=== PATIENT | male | born 1970 | race African-American/Black ===

== ENCOUNTER 2024-06-16 12:21 | Emergency (ER) | payer MEDICARE, MEDICAID ==
[2024-06-16] MEDS ORDERED: Bacitracin 1 PK ONE (16:52)
== END 2024-06-16 17:10 | disposition home or self-care (01) ==
LOC: ERS 12:21
DX: S60.445A External constriction of left ring finger, initial encounter (principal); L89.899 Pressure ulcer of other site, unspecified stage; E78.5 Hyperlipidemia, unspecified; Z79.899 Other long term (current) drug therapy; W49.04XA Ring or other jewelry causing external constriction, initial encounter
CPT/HCPCS: 99283